=== PATIENT | female | born 1980 | race Caucasian/White ===

== ENCOUNTER 2022-05-28 14:23 | Emergency (ER) | payer SELFPAY ==
[2022-05-28] MEDS ORDERED: Boostrix 0.5 ML (Tdap) VIAL (>/=7 yrs of age) ONE (15:15)
== END 2022-05-28 19:19 | disposition home or self-care (01) ==
LOC: ERS 14:23
DX: S90.852A Superficial foreign body, left foot, initial encounter (principal); W21.89XA Striking against or struck by other sports equipment, initial encounter; Z23 Encounter for immunization
CPT/HCPCS: 90471; 90715

== ENCOUNTER 2022-12-08 03:01 | Emergency (ER) | payer OTHER, SELFPAY ==
[2022-12-08] MEDS ORDERED: Dexameth. Sod Phosp. 10 MG/ML (CHEMO USE ONLY) ONE (03:21)
== END 2022-12-08 04:11 | disposition home or self-care (01) ==
LOC: ERS 03:01
DX: R22.33 Localized swelling, mass and lump, upper limb, bilateral (principal)
CPT/HCPCS: 96372; 99283; J1100

== ENCOUNTER 2023-06-11 22:28 | Emergency (ER) | payer OTHER | END 2023-06-12 01:44 | disposition home or self-care (01) | LOC: ERS 22:28 | DX: K62.5 Hemorrhage of anus and rectum (principal) ==

== ENCOUNTER 2023-09-22 21:58 | Emergency (ER) | payer OTHER ==
[2023-09-22 22:56] LABS: Influenza A by NAA Not Detected (NotDetected); Influenza B by NAA Not Detected (NotDetected); SARS-CoV-2 NAA Rapid Test Not Detected (NotDetected)
[2023-09-22] MEDS ORDERED: Acetaminophen 500 MG TAB ONE (23:32)
== END 2023-09-22 23:32 | disposition home or self-care (01) ==
LOC: ERS 21:58
DX: B34.9 Viral infection, unspecified (principal)
CPT/HCPCS: 71045